=== PATIENT | female | born 1950 | race Caucasian/White ===

== ENCOUNTER 2021-09-15 20:00 | Emergency (ER) | payer MEDICARE, OTHER ==
[~2021-09-15] VITALS: Ht 144.8 cm; Wt 48.1 kg
[2021-09-15 20:02] VITALS: BP 196/90
[2021-09-15] MEDS ORDERED: cloNIDine HCL 0.1 MG TAB PO ONE (20:30)
== END 2021-09-15 21:48 | disposition home or self-care (01) ==
LOC: ER 20:03
DX: I16.0 Hypertensive urgency (principal); I10 Essential (primary) hypertension
CPT/HCPCS: 93005

== ENCOUNTER 2025-02-24 18:20 | Emergency (ER) | payer OTHER ==
[2025-02-24 18:49] LABS: Urine Bacteria None Seen /hpf (None Seen)
[2025-02-24 18:59] LABS: Urine Blood 3+ /uL (Negative); Urine Clarity Turbid (Clear); Urine Color Colorless (Yellow); Urine Protein, UAD TRACE (Negative); Urine Specific Gravity 1.006 (1.001-1.035); Urine Squamous Epithelial Cell None Seen /hpf (<5); Urine Urobilinogen Normal (Negative); Urine WBC 115 /HPF (0-5); Urine pH 6.5 (5.0-9.0)
[2025-02-24 19:07] LABS: Basophils # (auto) 0 10 ^3/uL (0-0.2); Basophils % (auto) 0.4 % (0.0-2.0); Eosinophils # (auto) 0.1 10 ^3/uL (0-0.8); Eosinophils % (auto) 1.5 % (0.0-7.0); Hematocrit 39.3 % (36.0-46.0); Hemoglobin 13.5 g/dL (12.2-16.2); Lymphocytes # (auto) 2.3 10 ^3/uL (0.4-5.4); Lymphocytes % (auto) 34.3 % (10.0-50.0); Mean Corpuscular Hemoglobin 31.5 pg (28.0-32.0); Mean Corpuscular Hgb Conc. 34.3 g/dL (32.0-36.0); Mean Corpuscular Volume 91.7 fL (80.0-100.0); Monocytes # (auto) 0.6 10 ^3/uL (0-1.3); Monocytes % (auto) 8.5 % (0.0-12.0); Neutrophils # (auto) 3.7 10 ^3/uL (1.6-8.6); Neutrophils % (auto) 55.3 % (37.0-80.0); Nucleated Red Blood Cells % 0.1 %; Platelet Count (auto) 291 10^3/uL (140-450); Red Blood Cells 4.29 10^6/uL (4.0-5.20); Red Cell Distribution Width 14.1 % (11.8-14.3); White Blood Cell 6.6 10^3/uL (4.4-10.8)
--- NOTE | 2025-02-24 19:08 | ED.PDOC ---
General HPI Comments 74 year old female presents to the ED with a chief complaint of hematuria onset today (02/24/25). Patient states she was experiencing dysuria with hematuria 10 days ago, was treated with 1 week of antibiotics, symptoms resolved. She woke up this morning, began experiencing dysuria with hematuria, noticed she was passing blood clots. PMHx HTN. Denies nausea, vomiting, diarrhea, fevers, chills, headache, dizziness, chest pain. No other symptoms or modifying factors present at this time. 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 History: No Pertinent EYEDOTTER History Family History Family History: Reviewed,noncontributory to illness, No family hx of Cancer, No family hx of DM, No family hx of Heart kaycee, No family hx of HTN, No family hx ofKidney kaycee, No family hx of Liver kaycee, No family hx of Lung kaycee, No family hx of Stroke Social History Smoker: Non-Smoker Alcohol: Denies ETOH Use Drugs: Denies Drug Use Lives In: Home Constitutional: denies: chills, diaphoresis, fatigue, fever, malaise, sweats, weakness, others EENTM: denies: blurred vision, double vision, ear bleeding, ear discharge, ear drainage, ear pain, ear ringing, eye pain, eye redness, hearing loss, mouth pain, mouth swelling, nasal discharge, nose bleeding, nose congestion, nose pain, photophobia, tearing, throat pain, throat swelling, voice changes, others Respiratory: denies: cough, hemoptysis, orthopnea, SOB at rest, shortness of breath, SOB with excertion, stridor, wheezing, others Cardiovascular: denies: chest pain, dizzy spells, diaphoresis, Dyspnea on exertion, edema, irregular heart beat, left arm pain, lightheadedness, palpitations, PND, syncope, others Gastrointestinal: denies: abdomen distended, abdominal pain, blood streaked bowels, constipated, diarrhea, dysphagia, difficulty swallowing, hematemesis, melena, nausea, poor appetite, poor fluid intake, rectal bleeding, rectal pain, vomiting, others Genitourinary: reports: dysuria, hematuria; denies: abnormal vagina bleeding, burning, dyspareunia, flank pain, frequency, incontinence, pain, , vagina discharge, urgency, others Neurological: denies: dizziness, fainting, headache, left sided numbness, left sided weakness, numbness, paresthesia, pre-existing deficit, right sided numbness, right sided weakness, seizure, speech problems, tingling, tremors, weakness, others Musculoskeletal: denies: back pain, gout, joint pain, joint swelling, muscle pain, muscle stiffness, neck pain, others Integumetry: denies: bruises, change in color, change in hair/nails, dryness, laceration, lesions, lumps, rash, wounds, others Allergic/Immunocompromised: denies: Difficulty Healing, Frequent Infections, Hives, Itching, others Hematologic/Lymphatic: denies: anemia, blood clots, easy bleeding, easy bruising, swollen glands, others Endocrine: denies: excessive hunger, excessive sweating, excessive thirst, excessive urination, flushing, intolerance to cold, intolerance to heat, unexplained weight gain, unexplained weight loss, others Psychiatric: denies: anxiety, bipolar disorder, depression, hopeless, panic di sorder, schizophrenia, sleepless, suicidal, others All Other Systems: Reviewed and Negative Physical Exam General Appearance: Normal HEENT: Normal ENT Inspection, Pharynx Normal, TMs Normal Neck: Full Range of Motion, Non-Tender, Normal, Normal Inspection Respiratory: Chest Non-Tender, Lungs Clear, No Accessory Muscle Use, No Respiratory Distress, Normal Breath Sounds Cardiovascular: No Edema, No JVD, No Murmur, No Gallop, Normal Peripheral Pulses, Regular Rate/Rhythm Breast Exam: Deferred Gastrointestinal: No Organomegaly, Non Tender, No Pulsatile Mass, Normal Bowel Sounds, Soft Genitalia: Deferred Pelvic: Deferred Rectal: Deferred Extremities: No calf tenderness, Normal capillary refill, Normal inspection, Normal range of motion, Non-tender, No pedal edema Musculoskeletal : Apperance: Normal Neurologic: Alert, campaign worker II-XII nml as Tested, No Motor Deficits, Normal Affect, Normal Mood, No Sensory Deficits Cerebellar Function: Normal Reflexes: Normal Skin: Dry, Normal Color, Warm Lymphatic: No Adenopathy Was a procedure done? Was a procedure done?: No Differential Diagnosis Kidney stone (Female): N/A Kidney stone (Male): N/A Penile/Scrotal: N/A Urinary Problem (Male): N/A Urinary Problem (Female): Pyelonephritis, UTI X-Ray, Labs, Meds, VS Vital Signs Date Time Temp Pulse Resp B/P (MAP) Pulse Ox O2 Delivery O2 Flow Rate FiO2 02/24/25 20:29 56 18 199/68 (111) 96 02/24/25 20:29 59 18 97 Room Air 02/24/25 18:34 98.0 63 16 181/91 (121) 95 98.0 Lab Test 02/24/25 19:50 02/24/25 18:52 02/24/25 18:36 Range/Units Troponin I High Sensitivity 6 5 </=34 ng/L White Blood Count 6.6 4.4-10.8 10^3/uL Red Blood Count 4.29 4.0-5.20 10^6/uL Hemoglobin 13.5 12.2-16.2 g/dL Hematocrit 39.3 36.0-46.0 % Mean Corpuscular Volume 91.7 80.0-100.0 fL Mean Corpuscular Hemoglobin 31.5 28.0-32.0 pg Mean Corpuscular Hemoglobin Concent 34.3 32.0-36.0 g/dL Red Cell Distribution Width 14.1 11.8-14.3 % Platelet Count 291 140-450 10^3/uL Mean Platelet Volume 7.0 6.9-10.8 fL Neutrophils (%) (Auto) 55.3 37.0-80.0 % Lymphocytes (%) (Auto) 34.3 10.0-50.0 % Monocytes (%) (Auto) 8.5 0.0-12.0 % Eosinophils (%) (Auto) 1.5 0.0-7.0 % Basophils (%) (Auto) 0.4 0.0-2.0 % Neutrophils # (Auto) 3.7 1.6-8.6 10 ^3/uL Lymphocytes # (Auto) 2.3 0.4-5.4 10 ^3/uL Monocytes # (Auto) 0.6 0-1.3 10 ^3/uL Eosinophils # (Auto) 0.1 0-0.8 10 ^3/uL Basophils # (Auto) 0 0-0.2 10 ^3/uL Nucleated Red Blood Cells 0.1 % Sodium Level 135 L 136-145 mmol/L Potassium Level 3.8 3.5-5.1 mmol/L Chloride Level 98 98-107 mmol/L Carbon Dioxide Level 27 20-31 mmol/L Anion Gap 10 5-15 Blood Urea Nitrogen 16 9-23 mg/dL Creatinine 0.68 0.550-1.02 mg/dL Glomerular Filtration Rate Calc 92 >90 mL/min BUN/Creatinine Ratio 23.5 H 10.0-20.0 Serum Glucose 103 74-106 mg/dL Calcium Level 9.9 8.7-10.4 mg/dL Urine Color Colorless Yellow Urine Clarity Turbid H Clear Urine pH 6.5 5.0-9.0 Urine Specific [place] 1.006 1.001-1.035 Urine Protein Trace H Negative Urine Ketones Negative Negative Urine Blood 3+ H Negative /uL Urine Nitrite Negative Negative Urine Bilirubin Negative Negative Urine Urobilinogen Normal Negative mg/dL Urine Leukocyte Esterase 1+ Negative /uL Urine RBC 852 0 - 4 /hpf Urine Microscopic WBC 115 H 0-5 /HPF Urine Squamous Epithelial Cells None seen <5 /hpf Urine Bacteria None seen None Seen /hpf Urine Glucose Normal Normal mg/dL Time of 1ST Reevaluation: 19:00 Reevaluation 1ST: Unchanged Patient Education/Counseling: Diagnosis, Treatment, Prognosis Family Education/Counseling: No Family Present SEPSIS Sepsis Screen Date sepsis recognized/suspect: Feb 24, 2025 Time Sepsis recognized/suspect: 1833 Recent Procedure: No On Antibiotic Therapy: No Respiratory Rate >20: No Heart Rate >90: No Temp<36 C (96.8 F) or >38.3 C: No SBP <90 or MAP <65 mmHG: No New Acute Mental Status Change: No Is the patient on CPAP, BIPAP,: No Vital Signs Date Time Temp Pulse Resp B/P (MAP) Pulse Ox O2 Delivery O2 Flow Rate FiO2 02/24/25 20:29 56 18 199/68 (111) 96 02/24/25 20:29 59 18 97 Room Air 02/24/25 18:34 98.0 63 16 181/91 (121) 95 98.0 Laboratory Tests Test 02/24/25 18:52 White Blood Count 6.6 10^3/uL (4.4-10.8) Departure 1 Departure Time of Disposition: 21:39 (Patient has a acute cystitis likely failed her 1st round of antibiotics as an outpatient. We will try patient on different antibiotic and have her follow up with the regular doctor) Impression: Primary Impression: Acute cystitis Qualified Codes: N30.01 - Acute cystitis with hematuria Disposition: HOME / SELF CARE / HOMELESS Condition: Stable Additional Instructions: You have a urinary tract infection. You were prescribed antibiotics. Please take as directed. You can take Tylenol Motrin as needed for pain. It is important that he follow up with the regular doctor within 1 week to ensure you are doing better. If your symptoms worsen or you have any other concerns then please return to the emergency room. e-Prescriptions Cefdinir (Cefdinir) 300 Mg Cap 1 CAP PO BID for 7 Days, #14 CAP Prov: LEIGH ANN ORDONEZ MD 02/24/25 Discharged With: Self Critical Care Note Critical Care Time?: No Stability Stability form required: No I personally scribed for LEIGH ANN ORDONEZ MD ([email or web address]) on 02/24/25 at 19:08. Electronically submitted by Tammie Evans ([email or web address]). I personally scribed for LEIGH ANN ORDONEZ MD ([email or web address]) on 02/24/25 at 19:29. Electronically submitted by Tammie Evans ([email or web address]). LEIGH ANN ORDONEZ MD Feb 24, 2025 19:08
[2025-02-24 19:16] LABS: Potassium 3.8 mmol/L (3.5-5.1)
[2025-02-24 19:17] LABS: Anion Gap 10 (5-15); Carbon Dioxide 27 mmol/L (20-31)
[2025-02-24 19:18] LABS: Calcium 9.9 mg/dL (8.7-10.4)
[2025-02-24 19:22] LABS: BUN/Creatinine Ratio 23.5 (10.0-20.0); Blood Urea Nitrogen 16 mg/dL (9-23); Glucose 103 mg/dL (74-106)
[2025-02-24 19:28] LABS: Chloride 98 mmol/L (98-107); Sodium 135 mmol/L (136-145)
[2025-02-24] MEDS: cefTRIAXone W LIDOCAINE 1 GM IM IM ONE (21:26)
[2025-02-24] MEDS: LIDOCAINE 1% HCL (LOCAL ANESTH.) INJ 20ML MDV IJ ONE (21:38)
[2025-02-24] MEDS: cefTRIAXone SOD 1,000 MG VL IM ONE (21:38)
[2025-02-24] MEDS ORDERED: CEFD300C2 PO (21:40)
[2025-02-24 21:42] VITALS: BP 140/77; PULSE 60; RESP 17; TEMP 98.5; O2SAT 97
== END 2025-02-24 23:07 | disposition home or self-care (01) ==
LOC: ER 18:22
DX: N30.00 Acute cystitis without hematuria (principal); I10 Essential (primary) hypertension; Z90.89 Acquired absence of other organs
CPT/HCPCS: 36415; 80048; 81001; 84484; 85025; 96372; 99283; J0696; J2003

== ENCOUNTER 2025-02-28 22:38 | Emergency (ER) | payer OTHER ==
[~2025-02-28] VITALS: Ht 149.9 cm; Wt 53.0 kg
[~2025-02-28 22:38] MED LIST: CEFD300C2 PO
[2025-02-28 23:19] LABS: Basophils # (auto) 0 10 ^3/uL (0-0.2); Basophils % (auto) 0.6 % (0.0-2.0); Eosinophils # (auto) 0.2 10 ^3/uL (0-0.8); Eosinophils % (auto) 3.3 % (0.0-7.0); Hematocrit 40.7 % (36.0-46.0); Hemoglobin 13.9 g/dL (12.2-16.2); Lymphocytes # (auto) 2.3 10 ^3/uL (0.4-5.4); Lymphocytes % (auto) 36.8 % (10.0-50.0); Mean Corpuscular Hemoglobin 31.4 pg (28.0-32.0); Mean Corpuscular Hgb Conc. 34.2 g/dL (32.0-36.0); Mean Corpuscular Volume 91.9 fL (80.0-100.0); Monocytes # (auto) 0.6 10 ^3/uL (0-1.3); Monocytes % (auto) 9.2 % (0.0-12.0); Neutrophils # (auto) 3.1 10 ^3/uL (1.6-8.6); Neutrophils % (auto) 50.1 % (37.0-80.0); Nucleated Red Blood Cells % 0.1 %; Platelet Count (auto) 287 10^3/uL (140-450); Red Blood Cells 4.43 10^6/uL (4.0-5.20); White Blood Cell 6.2 10^3/uL (4.4-10.8)
[2025-02-28 23:33] LABS: Potassium 3.7 mmol/L (3.5-5.1)
[2025-02-28 23:34] LABS: Anion Gap 10 (5-15); Carbon Dioxide 25 mmol/L (20-31)
[2025-02-28 23:35] LABS: Calcium 9.7 mg/dL (8.7-10.4)
--- NOTE | 2025-02-28 23:35 | ED.PDOC ---
History of Present Illness HPI Comments 74-year-old female brought in by EMS from [place] [facility] for evaluation of persistent hematuria. Patient has a history of hypertension and recurrent UTIs. Has been experiencing dysuria and gross hematuria for the past 6 days. Patient was seen here, diagnosed with a UTI and discharged on cefdinir. Today patient noted recurrence of dysuria, with gross hematuria and clots. Patient was seen at [place] [facility] where her blood pressure was noted to be in the 200s systolic, so patient was transferred by EMS for evaluation of elevated blood pressure. She denies any chest pain, headache, dizziness, focal weakness, flank pain, abdominal pain, nausea or vomiting. Upon arrival blood pressure was 186/84 mm Hg Chief Complaint: Urinary Time Seen by MD: 23:34 Primary Care Provider: DENVER Reviewed Notes: Thoracic Medicine Physician Notes Allergies: Coded Allergies: NO KNOWN ALLERGIES (Unverified , 09/15/21) Home Meds Active Scripts Ondansetron Odt 4MG Tab (ZOFRAN PO) 4 Mg Tb, 4 MG PO TID PRN, #30 TAB prn n/v ODT TAB-DISSOLVE IN MOUTH, THEN SWALLOW Prov:CADE WHALEN MD 03/01/25 Phenazopyridine HCl (Phenazopyridine Hydrochlo) 200 Mg Tab, 200 MG PO TID PRN, #9 TAB Prn painful urination Prov:CADE WHALEN MD 03/01/25 Ciprofloxacin Hcl (Cipro) 500 Mg Tab, 1 TAB PO BID for 7 Days, #14 TAB Prov:CADE WHALEN MD 03/01/25 Cefdinir (Cefdinir) 300 Mg Cap, 1 CAP PO BID for 7 Days, #14 CAP Prov:LEIGH ANN ORDONEZ MD 02/24/25 Information Source: Patient Mode of Arrival: EMS Severity: Moderate Timing: Days Duration: Since onset Past Medical History PAST MEDICAL HISTORY: HTN, UTI'S Surgical History: Hysterectomy, Tonsillectomy 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 History Family History Family History: Reviewed,noncontributory to illness, No family hx of Cancer, No family hx of DM, No family hx of Heart kaycee, No family hx of HTN, No family hx ofKidney kaycee, No family hx of Liver kaycee, No family hx of Lung kaycee, No family hx of Stroke Social History Smoker: Non-Smoker Alcohol: Denies ETOH Use Drugs: Denies Drug Use Lives In: Home Constitutional: denies: chills, diaphoresis, fatigue, fever, malaise, sweats, weakness, others EENTM: denies: blurred vision, double vision, ear bleeding, ear discharge, ear drainage, ear pain, ear ringing, eye pain, eye redness, hearing loss, mouth pain, mouth swelling, nasal discharge, nose bleeding, nose congestion, nose pain, photophobia, tearing, throat pain, throat swelling, voice changes, others Respiratory: denies: cough, hemoptysis, orthopnea, SOB at rest, shortness of breath, SOB with excertion, stridor, wheezing, others Cardiovascular: denies: chest pain, dizzy spells, diaphoresis, Dyspnea on exertion, edema, irregular heart beat, left arm pain, lightheadedness, palpitations, PND, syncope, others Gastrointestinal: reports: abdominal pain; denies: abdomen distended, blood streaked bowels, constipated, diarrhea, dysphagia, difficulty swallowing, hematemesis, melena, nausea, poor appetite, poor fluid intake, rectal bleeding, rectal pain, vomiting, others Genitourinary: reports: dysuria, hematuria; denies: abnormal vagina bleeding, burning, dyspareunia, flank pain, frequency, incontinence, pain, , vagina discharge, urgency, others Neurological: denies: dizziness, fainting, headache, left sided numbness, left sided weakness, numbness, paresthesia, pre-existing deficit, right sided numbness, right sided weakness, seizure, speech problems, tingling, tremors, weakness, others Musculoskeletal: denies: back pain, gout, joint pain, joint swelling, muscle pain, muscle stiffness, neck pain, others Integumetry: denies: bruises, change in color, change in hair/nails, dryness, laceration, lesions, lumps, rash, wounds, others Allergic/Immunocompromised: denies: Difficulty Healing, Frequent Infections, Hives, Itching, others Hematologic/Lymphatic: denies: anemia, blood clots, easy bleeding, easy bruising, swollen glands, others Endocrine: denies: excessive hunger, excessive sweating, excessive thirst, excessive urination, flushing, intolerance to cold, intolerance to heat, unexplained weight gain, unexplained weight loss, others Psychiatric: denies: anxiety, bipolar disorder, depression, hopeless, panic disorder, schizophrenia, sleepless, suicidal, others Physical Exam General Appearance: No Apparent Distress HEENT: Other (Pupils and face symmetric. Moist mucous membranes.) Neck: Full Range of Motion, Normal Inspection Respiratory: Lungs Clear, No Accessory Muscle Use, No Respiratory Distress, Normal Breath Sounds Cardiovascular: No Edema, No JVD, Regular Rate/Rhythm Breast Exam: Deferred Gastrointestinal: Non Tender, Soft Genitalia: Deferred Pelvic: Deferred Rectal: Deferred Extremities: Normal inspection, Normal range of motion, Non-tender, No pedal edema Neurologic: Alert (Oriented x4), Normal Affect, Normal Mood, Other (Ambulatory) Cerebellar Function: NOT DONE Reflexes: NOT DONE Skin: Dry, Normal Color, Warm Lymphatic: NOT DONE Was a procedure done? Was a procedure done?: No Differential Dx Considerations may include: Hypertensive urgency/emergency, UTI, among others X-Ray, Labs, Meds, VS Vital Signs Date Time Temp Pulse Resp B/P (MAP) Pulse Ox O2 Delivery O2 Flow Rate FiO2 03/01/25 01:52 97.9 53 16 134/62 (86) 97 97.9 02/28/25 22:45 98.6 60 18 186/84 (118) 99 98.6 02/28/25 22:43 55 Lab Test 03/01/25 00:00 02/28/25 23:50 02/28/25 23:05 Range/Units Urine Color Light-red Yellow Urine Clarity Turbid H Clear Urine pH 6.5 5.0-9.0 Urine Specific [place] 1.008 1.001-1.035 Urine Protein 1+ H Negative Urine Ketones Negative Negative Urine Blood 3+ H Negative /uL Urine Nitrite Negative Negative Urine Bilirubin Negative Negative Urine Urobilinogen Normal Negative mg/dL Urine Leukocyte Esterase 1+ Negative /uL Urine RBC 2504 0 - 4 /hpf Urine Microscopic WBC 13 H 0-5 /HPF Urine Squamous Epithelial Cells None seen <5 /hpf Urine Bacteria None seen None Seen /hpf Urine Glucose Normal Normal mg/dL Troponin I High Sensitivity 6 5 </=34 ng/L White Blood Count 6.2 4.4-10.8 10^3/uL Red Blood Count 4.43 4.0-5.20 10^6/uL Hemoglobin 13.9 12.2-16.2 g/dL Hematocrit 40.7 36.0-46.0 % Mean Corpuscular Volume 91.9 80.0-100.0 fL Mean Corpuscular Hemoglobin 31.4 28.0-32.0 pg Mean Corpuscular Hemoglobin Concent 34.2 32.0-36.0 g/dL Red Cell Distribution Width 14.0 11.8-14.3 % Platelet Count 287 140-450 10^3/uL Mean Platelet Volume 6.9 6.9-10.8 fL Neutrophils (%) (Auto) 50.1 37.0-80.0 % Lymphocytes (%) (Auto) 36.8 10.0-50.0 % Monocytes (%) (Auto) 9.2 0.0-12.0 % Eosinophils (%) (Auto) 3.3 0.0-7.0 % Basophils (%) (Auto) 0.6 0.0-2.0 % Neutrophils # (Auto) 3.1 1.6-8.6 10 ^3/uL Lymphocytes # (Auto) 2.3 0.4-5.4 10 ^3/uL Monocytes # (Auto) 0.6 0-1.3 10 ^3/uL Eosinophils # (Auto) 0.2 0-0.8 10 ^3/uL Basophils # (Auto) 0 0-0.2 10 ^3/uL Nucleated Red Blood Cells 0.1 % Sodium Level 132 L 136-145 mmol/L Potassium Level 3.7 3.5-5.1 mmol/L Chloride Level 97 L 98-107 mmol/L Carbon Dioxide Level 25 20-31 mmol/L Anion Gap 10 5-15 Blood Urea Nitrogen 12 9-23 mg/dL Creatinine 0.72 0.550-1.02 mg/dL Glomerular Filtration Rate Calc 88 >90 mL/min BUN/Creatinine Ratio 16.7 10.0-20.0 Serum Glucose 111 H 74-106 mg/dL Calcium Level 9.7 8.7-10.4 mg/dL B-Type Natriuretic Peptide 158.73 0-100 pg/mL Current Medications Medications (Trade) Dose Ordered Sig/Nitesh Route Start Time Stop Time Status Last Admin Levofloxacin/ Dextrose 100 ml @ 100 mls/hr ONCE ONCE IV 02/28/25 23:30 03/01/25 00:29 DC 03/01/25 02:18 Phenazopyridine HCl (Pyridium Tablet) 200 mg ONCE ONCE PO 02/28/25 23:30 02/28/25 23:31 DC 03/01/25 02:18 X-Ray, Labs, Meds, VS Comment 74-year-old female history of hypertension and UTI brought in by EMS from [facility] with elevated blood pressure and complaints of persistent dysuria and hematuria despite taking cefdinir Vitals remarkable for heart rate 55, BP 186/84 Exam unremarkable Rhythm strip independently interpreted by me: Sinus bradycardia, rate 55, no ectopy. CBC unremarkable, basic metabolic panel remarkable for sodium 132, chloride 97, BNP 158.73, 2 troponins negative, UA abnormal consistent with UTI Patient treated with the following in the ED: Levaquin 500 mg IV, Pyridium 200 mg p.o. On re-evaluation, patient's blood pressure was 134/62 and other vitals were stable. Patient was asymptomatic. Hospitalization was considered, however patient had rapid improvement of symptoms with treatment in the ED, and I no longer feel hospitalization is necessary. Patient now appears stable for discharge with close outpatient follow-up with her primary physician. I will prescribe Cipro and Pyridium. Time of 1ST Reevaluation: 23:29 Reevaluation 1ST: Unchanged Patient Education/Counseling: Diagnosis, Treatment Family Education/Counseling: No Family Present SEPSIS Sepsis Screen Date sepsis recognized/suspect: Feb 28, 2025 Time Sepsis recognized/suspect: 2244 Recent Procedure: No On Antibiotic Therapy: No Respiratory Rate >20: No Heart Rate >90: No Temp<36 C (96.8 F) or >38.3 C: No SBP <90 or MAP <65 mmHG: No New Acute Mental Status Change: No Is the patient on CPAP, BIPAP,: No Physician Orders Electrocardigram (02/28/25 22:48) Chest Portable (02/28/25 22:57) Urine Bacterial Culture (02/28/25 23:00) Straight Cath Patient (03/01/25 00:50) Vital Signs Date Time Temp Pulse Resp B/P (MAP) Pulse Ox O2 Delivery O2 Flow Rate FiO2 03/01/25 01:52 97.9 53 16 134/62 (86) 97 97.9 02/28/25 22:45 98.6 60 18 186/84 (118) 99 98.6 02/28/25 22:43 55 Laboratory Tests Test 02/28/25 23:05 White Blood Count 6.2 10^3/uL (4.4-10.8) Medications Medications Dose Ordered Sig/Nitesh Route Start Time Stop Time Status Last Admin Dose Admin Levofloxacin/ Dextrose 100 ml @ 100 mls/hr ONCE ONCE IV 02/28/25 23:30 03/01/25 00:29 DC 03/01/25 02:18 Phenazopyridine HCl 200 mg ONCE ONCE PO 02/28/25 23:30 02/28/25 23:31 DC 03/01/25 02:18 Departure 1 Departure Time of Disposition: 02:15 Impression: Primary Impression: Hypertensive urgency Additional Impression: UTI (urinary tract infection) Qualified Codes: N39.0 - Urinary tract infection, site not specified; R31.9 - Hematuria, unspecified Disposition: 01 HOME / SELF CARE / HOMELESS Condition: Stable Additional Instructions: Your blood tests showed a slightly low sodium and chloride, but were otherwise unremarkable. Your blood pressure has improved. I have prescribed an additional antibiotic for your urinary tract infection. Continue cefdinir until finished. Return to ER for persistent or worsening symptoms. e-Prescriptions Ondansetron Odt 4MG Tab (ZOFRAN PO) 4 Mg Tb 4 MG PO TID PRN, #30 TAB prn n/v ODT TAB-DISSOLVE IN MOUTH, THEN SWALLOW Prov: CADE WHALEN MD 03/01/25 Phenazopyridine HCl (Phenazopyridine Hydrochlo) 200 Mg Tab 200 MG PO TID PRN, #9 TAB Prn painful urination Prov: CADE WHALEN MD 03/01/25 Ciprofloxacin Hcl (Cipro) 500 Mg Tab 1 TAB PO BID for 7 Days, #14 TAB Prov: CADE WHALEN MD 03/01/25 Discharged With: Relative Critical Care Note Critical Care Time?: Yes (35 min-critical care time only) Critical care comment: Hypertensive urgency Stability Stability form required: No Heart Score Heart Score: Heart Score Response (Comments) Value History N/A 0 EKG N/A 0 Age N/A 0 Risk Factors N/A 0 Troponin N/A 0 Total 0 I personally scribed for CADE WHALEN MD [facility] on 02/28/25 at 23:34. Electronically submitted by Roberto SalesRCARRILLO). CADE WHALEN MD Feb 28, 2025 23:34
[2025-02-28 23:40] LABS: BUN/Creatinine Ratio 16.7 (10.0-20.0); Blood Urea Nitrogen 12 mg/dL (9-23)
[2025-02-28 23:41] LABS: Chloride 97 mmol/L (98-107); Glucose 111 mg/dL (74-106); Sodium 132 mmol/L (136-145)
--- NOTE | 2025-02-28 23:58 | DVH ---
EXAMINATIONS: AP portable chest radiograph CLINICAL HISTORY: al bp COMPARISON: None FINDINGS: No dominant consolidations. The costophrenic angles appear clear. No sizable pleural effusion or pne umothorax identified. Aortic calcifications. The cardiomediastinal silhouette otherwise appears wit hin normal limits given technique. IMPRESSION: No acute cardiopulmonary findings as visualized.
[2025-03-01 01:52] VITALS: BP 134/62; PULSE 53; RESP 16; TEMP 97.9; O2SAT 97
[2025-03-01] MEDS ORDERED: PHEN-922 PO (02:17)
[2025-03-01] MEDS ORDERED: CIPR-173 PO (02:17)
[2025-03-01] MEDS: PHENAZOPYRIDINE HCL 100 MG TAB PO ONE (02:18)
[2025-03-01] MEDS: levoFLOXacin 500MG 100 ML IV ONE (02:18)
[2025-03-01 02:45] LABS: Urine Bacteria None Seen /hpf (None Seen)
[2025-03-01] MEDS ORDERED: ZOFR4T PO (02:48)
[2025-03-01] MEDS: ONDANSETRON HCL 4 MG/2 ML VIAL IV ONE ×2 (02:51)
[2025-03-01 02:58] LABS: Urine Blood 3+ /uL (Negative); Urine Clarity Turbid (Clear); Urine Color Light-Red (Yellow); Urine Protein, UAD 1+ (Negative); Urine Specific Gravity 1.008 (1.001-1.035); Urine Squamous Epithelial Cell None Seen /hpf (<5); Urine Urobilinogen Normal (Negative); Urine WBC 13 /HPF (0-5); Urine pH 6.5 (5.0-9.0)
--- NOTE | 2025-03-01 07:03 | ECG ---
[facility] Test Date: 2025-02-28 Test Time: 22:42:15 Pat Name: BUCKY ROMAN Department: ED Room: Gender: F Carburizer: IC : 1950 Requested By: DARREN CHU Order Number: [id number] Reading MD: Alfonzo Levine Measurements Intervals [place] Rate: 55 P: 28 MN: 180 QRS: 33 QRSD: 78 T: 87 QT: 423 QTc: 405 Interpretive Statements Sinus rhythm Nonspecific repol abnormality, lateral leads Electronically Signed On 03-06-2025 9:36:54 PDT by Alfonzo Levine Please click the below link to view image of tracing.
== END 2025-03-01 03:08 | disposition home or self-care (01) ==
LOC: EDBD 22:38 → ER 22:38
DX: I16.0 Hypertensive urgency (principal); N39.0 Urinary tract infection, site not specified; I10 Essential (primary) hypertension; Z90.710 Acquired absence of both cervix and uterus; Z87.440 Personal history of urinary (tract) infections; Z79.899 Other long term (current) drug therapy
CPT/HCPCS: 36415; 71045; 80048; 81001; 83880; 84484; 85025; 87086; 93005; 96365; 99285; J1956; J2405

== ENCOUNTER 2025-03-06 05:31 | Inpatient (IN) | payer OTHER ==
[~2025-03-06] VITALS: Ht 162.6 cm; Wt 52.5 kg
[~2025-03-06 05:31] MED LIST changes: +CIPR-173 PO; +PHEN-922 PO; +ZOFR4T PO
--- NOTE | 2025-03-06 06:07 | ECG ---
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
[2025-03-06 06:18] VITALS: PULSE 48; RESP 13; O2SAT 97
--- NOTE | 2025-03-06 06:37 | ED.PDOC ---
HPI Comments 74 year old female with a Hx of HTH was BIBA for the c/c of HTN. Per EMS pt had a BP on Scene of 191/100 but has since dropped to 100/41 in the ED. Pt currently denies any DEL ROSARIO, CP, SOB, Dizziness, Ect, but does report recently being prescribed Lisinopril. No other associated symptoms, modifiers, recent injuries or sick contacts present at this time. Chief Complaint: High Blood Pressure Time Seen by MD: 06:33 Primary Care Provider: JOAQUIN Reviewed Notes: Nurses Notes, Senior Physician Notes, Medications, Allergies Allergies: Coded Allergies: NO KNOWN ALLERGIES (Unverified , 09/15/21) Home Meds Active Scripts Ondansetron Odt 4MG Tab (ZOFRAN PO) 4 Mg Tb, 4 MG PO TID PRN, #30 TAB prn n/v ODT TAB-DISSOLVE IN MOUTH, THEN SWALLOW Prov:CADE WHALEN MD 03/01/25 Phenazopyridine HCl (Phenazopyridine Hydrochlo) 200 Mg Tab, 200 MG PO TID PRN, #9 TAB Prn painful urination Prov:CADE WHALEN MD 03/01/25 Ciprofloxacin Hcl (Cipro) 500 Mg Tab, 1 TAB PO BID for 7 Days, #14 TAB Prov:CADE WHALEN MD 03/01/25 Cefdinir (Cefdinir) 300 Mg Cap, 1 CAP PO BID for 7 Days, #14 CAP Prov:LEIGH ANN ORDONEZ MD 02/24/25 Information Source: Patient Mode of Arrival: EMS Severity: Moderate Timing: Hours Duration: Since onset, Hours Prehospital treatment: 12 Lead EKG Location: Chest (L) Radiation: No Radiation Quality: Other Onset: At Rest Cardiac Risk Factors: HTN PE Risk Factors: None History of: None Modifying Factors: Exertion Associated Signs and Symptoms: None Past Medical History PAST MEDICAL HISTORY: HTN, UTI'S Surgical History: Hysterectomy, Tonsillectomy EXECUTIVE OFFICER History: No Pertinent EXECUTIVE OFFICER History Family History Family History: Reviewed,noncontributory to illness, No family hx of Cancer, No family hx of DM, No family hx of Heart kaycee, No family hx of HTN, No family hx ofKidney kaycee, No family hx of Liver kaycee, No family hx of Lung kaycee, No family hx of Stroke Social History Smoker: Non-Smoker Alcohol: Denies ETOH Use Drugs: Denies Drug Use Lives In: Home Constitutional: denies: chills, diaphoresis, fatigue, fever, malaise, sweats, weakness, others EENTM: denies: blurred vision, double vision, ear bleeding, ear discharge, ear drainage, ear pain, ear ringing, eye pain, eye redness, hearing loss, mouth pain, mouth swelling, nasal discharge, nose bleeding, nose congestion, nose pain, photophobia, tearing, throat pain, throat swelling, voice changes, others Respiratory: denies: cough, hemoptysis, orthopnea, SOB at rest, shortness of breath, SOB with excertion, stridor, wheezing, others Cardiovascular: reports: others (HTN); denies: chest pain, dizzy spells, diaphoresis, Dyspnea on exertion, edema, irregular heart beat, left arm pain, lightheadedness, palpitations, PND, syncope Gastrointestinal: denies: abdomen distended, abdominal pain, blood streaked bowels, constipated, diarrhea, dysphagia, difficulty swallowing, hematemesis, melena, nausea, poor appetite, poor fluid intake, rectal bleeding, rectal pain, vomiting, others Genitourinary: denies: abnormal vagina bleeding, burning, dyspareunia, dysuria, flank pain, frequency, hematuria, incontinence, pain, , vagina discharge, urgency, others Neurological: denies: dizziness, fainting, headache, left sided numbness, left sided weakness, numbness, paresthesia, pre-existing deficit, right sided numbness, right sided weakness, seizure, speech problems, tingling, tremors, weakness, others Musculoskeletal: denies: back pain, gout, joint pain, joint swelling, muscle pain, muscle stiffness, neck pain, others Integumetry: denies: bruises, change in color, change in hair/nails, dryness, laceration, lesions, lumps, rash, wounds, others Allergic/Immunocompromised: denies: Difficulty Healing, Frequent Infections, Hives, Itching, others Hematologic/Lymphatic: denies: anemia, blood clots, easy bleeding, easy bruising, swollen glands, others Endocrine: denies: excessive hunger, excessive sweating, excessive thirst, excessive urination, flushing, intolerance to cold, intolerance to heat, unexplained weight gain, unexplained weight loss, others Psychiatric: denies: anxiety, bipolar disorder, depression, hopeless, panic disorder, schizophrenia, sleepless, suicidal, others All Other Systems: Reviewed and Negative Physical Exam General Appearance: Moderate Distress, Normal HEENT: Normal ENT Inspection, Pharynx Normal, TMs Normal Neck: Full Range of Motion, Non-Tender, Normal, Normal Inspection Respiratory: Chest Non-Tender, Lungs Clear, No Accessory Muscle Use, No Respiratory Distress, Normal Breath Sounds Cardiovascular: Bradycardia, No Edema, No JVD, No Murmur, No Gallop, Normal Peripheral Pulses Breast Exam: Deferred Gastrointestinal: No Organomegaly, Non Tender, No Pulsatile Mass, Normal Bowel Sounds, Soft Genitalia: Deferred Pelvic: Deferred Rectal: Deferred Extremities: No calf tenderness, Normal capillary refill, Normal inspection, Normal range of motion, Non-tender, No pedal edema Musculoskeletal : Apperance: Normal Neurologic: Alert, services account manager II-XII nml as Tested, No Motor Deficits, Normal Affect, Normal Mood, No Sensory Deficits Cerebellar Function: NOT DONE Reflexes: NOT DONE Skin: Dry, Normal Color, Warm Peripheral Pulses: 3+ Radial (R), 3+ Radial (L) Lymphatic: No Adenopathy EKG EKG : Pulse Rate (adult): 52 Cardiac Rhythm: SB Was a procedure done? Was a procedure done?: No CP Differential Dx Differential Diagnosis: A-fib, A-Flutter, Angina, Anxiety / Panic Attack, Atri al Dysrhythmia, Electrolyte Disorder, Hyperthyroidism, Hyperventilation, Hypoxia, Pulmonary Embolus, Ventricular Dysrhythmia Differential Diagnosis: CHF, HTN Essential, HTN Encephalopathy X-Ray, Labs, Meds, VS Vital Signs Date Time Temp Pulse Resp B/P (MAP) Pulse Ox O2 Delivery O2 Flow Rate FiO2 03/06/25 08:02 98.4 55 13 116/56 (76) 97 98.4 03/06/25 08:01 54 13 97 Room Air* 0 03/06/25 07:56 52 03/06/25 06:18 48 13 97 Room Air* 0 03/06/25 06:15 98.4 48 13 100/41 (60) 97 98.4 03/06/25 06:00 49 03/06/25 05:31 98.5 56 16 157/73 (101) 97 98.5 Lab Test 03/06/25 06:39 Range/Units White Blood Count 4.0 #L 4.4-10.8 10^3/uL Red Blood Count 4.11 4.0-5.20 10^6/uL Hemoglobin 13.0 12.2-16.2 g/dL Hematocrit 37.9 36.0-46.0 % Mean Corpuscular Volume 92.3 80.0-100.0 fL Mean Corpuscular Hemoglobin 31.6 28.0-32.0 pg Mean Corpuscular Hemoglobin Concent 34.2 32.0-36.0 g/dL Red Cell Distribution Width 14.1 11.8-14.3 % Platelet Count 270 140-450 10^3/uL Mean Platelet Volume 7.0 6.9-10.8 fL Neutrophils (%) (Auto) 60.9 37.0-80.0 % Lymphocytes (%) (Auto) 27.9 10.0-50.0 % Monocytes (%) (Auto) 8.5 0.0-12.0 % Eosinophils (%) (Auto) 2.2 0.0-7.0 % Basophils (%) (Auto) 0.5 0.0-2.0 % Neutrophils # (Auto) 2.4 1.6-8.6 10 ^3/uL Lymphocytes # (Auto) 1.1 0.4-5.4 10 ^3/uL Monocytes # (Auto) 0.3 0-1.3 10 ^3/uL Eosinophils # (Auto) 0.1 0-0.8 10 ^3/uL Basophils # (Auto) 0 0-0.2 10 ^3/uL Nucleated Red Blood Cells 0.0 % Sodium Level 132 L 136-145 mmol/L Potassium Level 3.5 3.5-5.1 mmol/L Chloride Level 99 98-107 mmol/L Carbon Dioxide Level 24 20-31 mmol/L Anion Gap 9 5-15 Blood Urea Nitrogen 11 9-23 mg/dL Creatinine 0.63 0.550-1.02 mg/dL Glomerular Filtration Rate Calc 94 >90 mL/min BUN/Creatinine Ratio 17.5 10.0-20.0 Serum Glucose 122 H 74-106 mg/dL Calcium Level 9.7 8.7-10.4 mg/dL Troponin I High Sensitivity 4 </=34 ng/L Current Medications Medications (Trade) Dose Ordered Sig/Nitesh Route Start Time Stop Time Status Last Admin Sodium Chloride 1,000 ml @ 1,000 mls/hr Q1H ONCE IV 03/06/25 06:45 03/06/25 07:44 DC 03/06/25 06:43 Patient alert. Answering questions. Bradycardic. Establish intravenous access. Was given fluids. Blood pressure on the low side. Cardiac marker within normal limits. Hemoglobin within normal limits. Cardiology consultation for pacemaker evaluation. Explained to the patient. Unstable for transfer. [facility] approved inpatient admission [id number]. Time of 1ST Reevaluation: 07:04 Reevaluation 1ST: Unchanged Patient Education/Counseling: Diagnosis, Treatment, Need For Follow Up Family Education/Counseling: No Family Present SEPSIS Sepsis Screen Date sepsis recognized/suspect: Mar 06, 2025 Time Sepsis recognized/suspect: 530 Recent Procedure: No On Antibiotic Therapy: No Respiratory Rate >20: No Heart Rate >90: No Temp<36 C (96.8 F) or >38.3 C: No SBP <90 or MAP <65 mmHG: No New Acute Mental Status Change: No Is the patient on CPAP, BIPAP,: No Physician Orders Urinalysis (03/06/25 06:31) Vital Signs Date Time Temp Pulse Resp B/P (MAP) Pulse Ox O2 Delivery O2 Flow Rate FiO2 03/06/25 08:02 98.4 55 13 116/56 (76) 97 98.4 03/06/25 08:01 54 13 97 Room Air* 0 21 03/06/25 07:56 52 03/06/25 06:18 48 13 97 Room Air* 0 21 03/06/25 06:15 98.4 48 13 100/41 (60) 97 98.4 03/06/25 06:00 49 03/06/25 05:31 98.5 56 16 157/73 (101) 97 98.5 Laboratory Tests Test 03/06/25 06:39 White Blood Count 4.0 10^3/uL (4.4-10.8) #L Medications Medications Dose Ordered Sig/Nitesh Route Start Time Stop Time Status Last Admin Dose Admin Sodium Chloride 1,000 ml @ 1,000 mls/hr Q1H ONCE IV 03/06/25 06:45 03/06/25 07:44 DC 03/06/25 06:43 Departure 1 Departure Time of Disposition: 07:56 Impression: Primary Impression: Symptomatic bradycardia Disposition: 09 ADMITTED INPATIENT Admit to: Med Surg Condition: Guarded Critical Care Note Critical Care Time?: Yes (90 min-critical care time only) Critical care comment: Blood pressure on the low side continue to monitor Stability Stability form required: No Heart Score Heart Score: Heart Score Response (Comments) Value History Slightly Suspicious 0 EKG Normal 0 Age >65 2 Risk Factors 1 or 2 risk factors 1 Troponin Normal limit 0 Total 3 I personally scribed for SELAM BELL MD ([email or web address]) on 03/06/25 at 06:37. Electronically submitted by Steve Ricardo ([email or web address]). SELAM BELL MD Mar 06, 2025 06:37
[2025-03-06] MEDS: SODIUM CHLORIDE 0.9% 1,000 ML IV ONE (06:43)
[2025-03-06 06:58] LABS: Hematocrit 37.9 % (36.0-46.0); Hemoglobin 13.0 g/dL (12.2-16.2); Mean Corpuscular Hemoglobin 31.6 pg (28.0-32.0); Mean Corpuscular Volume 92.3 fL (80.0-100.0); Nucleated Red Blood Cells % 0.0 %
[2025-03-06 07:07] LABS: Chloride 99 mmol/L (98-107); Potassium 3.5 mmol/L (3.5-5.1)
[2025-03-06 07:08] LABS: Anion Gap 9 (5-15); Calcium 9.7 mg/dL (8.7-10.4); Carbon Dioxide 24 mmol/L (20-31)
[2025-03-06 07:10] LABS: Sodium 132 mmol/L (136-145)
[2025-03-06 07:13] LABS: BUN/Creatinine Ratio 17.5 (10.0-20.0); Blood Urea Nitrogen 11 mg/dL (9-23)
[2025-03-06 07:14] LABS: Glucose 122 mg/dL (74-106)
[2025-03-06 08:01] VITALS: PULSE 54; RESP 13; O2SAT 97
[2025-03-06] MEDS ORDERED: BISO5TAB44 PO (10:08)
[2025-03-06] MEDS ORDERED: LISI10TA34 PO (10:08)
[2025-03-06] MEDS ORDERED: HYDROcodone-ACET 5/325MG TAB PO PRN (10:15)
[2025-03-06] MEDS ORDERED: ONDANSETRON HCL 4 MG/2 ML VIAL IV PRN (10:15)
[2025-03-06] MEDS ORDERED: hydrALAZINE HCL 20 MG/ML VL IV PRN (10:15)
[2025-03-06] MEDS ORDERED: DOCUSATE SOD 100 MG CAP PO PRN (10:15)
[2025-03-06] MEDS ORDERED: MORPHINE SULFATE INJ 2 MG/ml SYRG IV PRN (10:15)
[2025-03-06] MEDS ORDERED: NITROGLYCERIN 0.4 MG SL TAB SL PRN (10:15)
[2025-03-06] MEDS ORDERED: ACETAMINOPHEN 325 MG TAB PO PRN (10:15)
--- NOTE | 2025-03-06 10:24 | DVHHP2 ---
History of Present Illness Reason for Visit: Hypertension History of Present Illness Finn Polanco is a 74-year-old female with past medical history of hypertension who came to the hospital for uncontrolled hypertension. Patient has been taking antihypertensives for a few years, she was weaned off her statin due to controlling her cholesterol with diet and exercise. However her blood pressure has been continuing to increase. Recently she has increased her Bisoprolol from daily to BID, then last week they added lisinopril to her regimen. She continues to have uncontrolled blood pressure. She came to the hospital last night because despite taking all her medications and taking an extra bisoprolol her blood pressure remained elevated. Patient states she took her blood pressure medication last night about 1800. Went to sleep about 2000. Woke up about 2100 and had difficulty going back to sleep. She states she usually has difficulty sleeping when her blood pressure is elevated. She took her blood pressure and it was in the 180's, she took another bisoprolol. Her blood pressure did not i mprove, so she called her granddaughter to come and bring her to the hospital. While in the ER she was bradycardic, this is most likely due to the extra dose of bisoprolol. She states her heart rate is usually in the 60's. At time of my assessment her hear rate is in the high 50's - low 60's, and she is asymptomatic. Cardiovascular: HTN Past Surgical History: Hysterectomy, Tonsillectomy Smoke: No ALCOHOL: none Drugs: None Lives: with Family Domestic Violence: Neg Review of Systems Constitutional: No: Fever, Chills, Sweats, Weakness, Malaise, Other Eyes: No: Pain, Vision change, Conjunctivae inflammation, Eyelid inflammation, Other, Redness ENT: No: Ear pain, Ear discharge, Nose pain, Nose discharge, Nose congestion, Mouth pain, Mouth swelling, Throat pain, Throat swelling, Other Respiratory: No: Cough, Dry, Shortness of breath, SOB with excertion, Wheezing, Hemoptysis, Pleuritic Pain, Sputum, Wheezing, Other Cardiovascular: Other (Hypertension); No: Chest Pain, Palpitations, Orthopnea, Paroxysmal Noc. Dyspnea, Edema, Lt Headedness Gastrointestinal: No: Nausea, Vomiting, Abdominal Pain, Diarrhea, Constipation, Melena, Hematochezia, Other Genitourinary: No Dysuria, No Frequency, No Incontinence, No Hematuria, No Retention, No Other Musculoskeletal: No: other, neck pain, shoulder pain, arm pain, back pain, hand pain, leg pain, foot pain Skin: No: Rash, Lesions, Jaundice, Bruising, Other Neurological: No: Weakness, Numbness, Incoordination, Change in speech, Confusion, Seizures, Other Allergies: Coded Allergies: NO KNOWN ALLERGIES (Unverified , 09/15/21) Medications Current Medications Medications Dose Ordered Sig/Nitesh Route Start Time Stop Time Status Last Admin Dose Admin Sodium Chloride 10 ml Q8HR IV 03/06/25 14:00 UNV Acetaminophen/ Hydrocodone Bitart 1 tab Q4HP PRN PO 03/06/25 10:15 UNV Ondansetron HCl 4 mg Q4HP PRN IV 03/06/25 10:15 UNV Docusate Sodium 100 mg BIDPRN PRN PO 03/06/25 10:15 UNV Acetaminophen 650 mg Q6HP PRN PO 03/06/25 10:15 UNV Nitroglycerin 0.4 mg Q5MINP PRN SL 03/06/25 10:15 UNV Morphine Sulfate 2 mg Q30M PRN IV 03/06/25 10:15 UNV Patient Own Medication 5 mg BID PO 03/06/25 22:00 UNV Patient Own Medication 1 tab BID PO 03/06/25 22:00 UNV Hydralazine HCl 10 mg Q6HP PRN IV 03/06/25 10:15 UNV Exam Vital Signs Vital Signs Date Time Temp Pulse Resp B/P (MAP) Pulse Ox O2 Delivery O2 Flow Rate FiO2 03/06/25 10:00 55 14 137/64 (88) 96 03/06/25 08:02 98.4 98.4 03/06/25 08:01 Room Air* 0 21 General Appearance: Alert, Oriented X3, Cooperative, mild distress HEENT: Atraumatic, PERRLA Respiratory: Clear to auscultation Cardiovascular: Normal S1, Normal S2, Other (SB-SR) Abdominal: Normal bowel sounds, Soft, No tenderness Extremities: No clubbing, No cyanosis, No edema, Normal pulses, No tenderness/swelling Skin: No rashes, No breakdown, No significant lesion Neuro: Normal gait, Normal speech, Strength at 5/5 X4 ext Psych/Mental Status: Mental status NL, Mood NL Labs/Xrays Labs Test 03/06/25 06:39 Range/Units White Blood Count 4.0 #L 4.4-10.8 10^3/uL Red Blood Count 4.11 4.0-5.20 10^6/uL Hemoglobin 13.0 12.2-16.2 g/dL Hematocrit 37.9 36.0-46.0 % Mean Corpuscular Volume 92.3 80.0-100.0 fL Mean Corpuscular Hemoglobin 31.6 28.0-32.0 pg Mean Corpuscular Hemoglobin Concent 34.2 32.0-36.0 g/dL Red Cell Distribution Width 14.1 11.8-14.3 % Platelet Count 270 140-450 10^3/uL Mean Platelet Volume 7.0 6.9-10.8 fL Neutrophils (%) (Auto) 60.9 37.0-80.0 % Lymphocytes (%) (Auto) 27.9 10.0-50.0 % Monocytes (%) (Auto) 8.5 0.0-12.0 % Eosinophils (%) (Auto) 2.2 0.0-7.0 % Basophils (%) (Auto) 0.5 0.0-2.0 % Neutrophils # (Auto) 2.4 1.6-8.6 10 ^3/uL Lymphocytes # (Auto) 1.1 0.4-5.4 10 ^3/uL Monocytes # (Auto) 0.3 0-1.3 10 ^3/uL Eosinophils # (Auto) 0.1 0-0.8 10 ^3/uL Basophils # (Auto) 0 0-0.2 10 ^3/uL Nucleated Red Blood Cells 0.0 % Sodium Level 132 L 136-145 mmol/L Potassium Level 3.5 3.5-5.1 mmol/L Chloride Level 99 98-107 mmol/L Carbon Dioxide Level 24 20-31 mmol/L Anion Gap 9 5-15 Blood Urea Nitrogen 11 9-23 mg/dL Creatinine 0.63 0.550-1.02 mg/dL Glomerular Filtration Rate Calc 94 >90 mL/min BUN/Creatinine Ratio 17.5 10.0-20.0 Serum Glucose 122 H 74-106 mg/dL Calcium Level 9.7 8.7-10.4 mg/dL Troponin I High Sensitivity 4 </=34 ng/L Assessment/Plan Assessment/Plan Assessment: Uncontrolled hypertension, Bradycardia, Plan: Admit to Tele, Consider cardiology consult if symptoms persist, ECHO, Chest X-ray, Antihypertensives, PRN antihypertensives, Consider lowering beta tyra dose, Home medications reconciled, Plan discussed with: Patient My Orders Orders - GERBER GARCIA Procedure Category Date Status Time Admit ADMIT 03/06/25 Transmitted 10:04 Code Status CODE 03/06/25 Transmitted 10:04 2 Gm Sodium Diet DIET 03/06/25 Transmitted Lunch Sodium Chloride Lock PHA 03/06/25 Logged (Saline Lock Ns) 14:00 Hydrocodone-Acet PHA 03/06/25 Logged 5/325mg Tab ([place] 10:15 Ondansetron Hcl PHA 03/06/25 Logged (Zofran) 10:15 Docusate Sodium PHA 03/06/25 Logged Capsule (Colace 10:15 Complete Blood Count LAB 03/07/25 Verified 04:00 Comprehensive LAB 03/07/25 Verified Metabolic Panel 04:00 Echo 2d Mode Cardiac US 03/06/25 Logged DOP 10:04 Condition: Serious [facility] 03/06/25 In Process 10:04 Acetaminophen Tablet [facility] 03/06/25 Logged (Tylenol Tablet) 10:15 Nitroglycerin PHA 03/06/25 Logged Sublingual (Ntrostat 10:15 Morphine Sulfate PHA 03/06/25 Logged Injection 10:15 Stat Ekg For Chest [facility] 03/06/25 In Process Pain 10:04 Notify Md Of Changes [facility] 03/06/25 In Process From Base 10:04 Granite Fabricator For [facility] 03/06/25 In Process 24 Hours 10:04 Emergency Dysrhythmia [facility] 03/06/25 In Process Protocol 10:04 Rhythm Strips Once [facility] 03/06/25 In Process Every Shift 10:04 Oxygen By Nasal RT 03/06/25 Transmitted Cannula 10:04 (Nf) Bisoprolol PHA 03/06/25 Logged Fumarate 22:00 (Nf) Lisinopril PHA 03/06/25 Logged 22:00 Hydralazine Injection [facility] 03/06/25 Logged (Apresoline Inject 10:15 Date of Service: Mar 06, 2025 Billing Provider: GERBER GARCIA Common Visit Codes: [id number] INP/OBS CARE (MOD) GERBER GARCIA Mar 06, 2025 10:24
[2025-03-06] MEDS: LISINOPRIL 5 MG TAB PO SCH (10:34)
--- NOTE | 2025-03-06 10:42 | DVH ---
EXAM: XY CHEST TWO VIEWS ROUTINE HISTORY: Uncontrolled hypertension COMPARISON: None TECHNIQUE: Frontal and lateral views of the chest were performed. FINDINGS: No pneumothorax, pulmonary edema, pleural effusions, or consolidative infiltrates. There is central p eribronchial thickening. The thoracic aorta is calcific. The heart is not enlarged. No fractures ar e identified about the bony thorax. There is thoracic degenerative disc disease. There is mild lower thoracic levoscoliosis. IMPRESSION: Mild reactive airways disease. The lungs are otherwise clear.
[2025-03-06 11:29] VITALS: PULSE 58
[2025-03-06 12:15] VITALS: BP 163/88; PULSE 58; RESP 18; TEMP 98.4; O2SAT 96
[2025-03-06] MEDS: SODIUM CHLOR 0.9% PF (SALINE LOCK) 10ML VIAL/SYR IV SCH (13:38)
[2025-03-06 20:00] VITALS: PULSE 54; PULSE 57; RESP 57; O2SAT 94
[2025-03-06 21:00] VITALS: BP 129/76; PULSE 57; RESP 17; TEMP 97.9; O2SAT 94
[2025-03-06] MEDS: Bisoprolol Fumarate 5 MG TABLET PO SCH (21:37)
[2025-03-07] VITALS (8 sets, daily range): BP systolic 139–165; BP diastolic 66–85; PULSE 54–71; RESP 17–20; TEMP 96.9–98.1; O2SAT 94–98
--- NOTE | 2025-03-07 06:52 | DVHSR ---
APPROVED REPORT EXAM: Two-dimensional and M-mode echocardiogram with Doppler and color Doppler. Blood Pressure: 137/64 mmHg INDICATION Uncontrolled HTN LV Function RISK FACTORS Height: 5' 4", Weight: 114 DIMENSIONS LVDd4.3 (3.8-5.7cm)LA (2D)3.6 (1.9-4.0cm)Aortic Root2.7 (2.0-3.7cm) LVDs2.7 (2.5-4.0cm)LA (MM) (1.9-4.0cm)Aortic Cusp Exc1.7 (1.5-2.0cm) EF (%) 66.0 (55-70%)Rt. Atrium3.5 (1.9-4.0cm)Asc. Aorta cm IVSd1.0 (0.7-1.1cm)RV (D) (1.8-2.4cm) PWd0.9 (0.7-1.1cm) Mitral Valve MitralMitral Stenosis E wave0.70m/sMV Mean GR.mmHg A wave0.90m/sMV Peak GR.mmHg E/A ratio0.82D MVAcm2 Aortic Valve Aortic ValveAortic Stenosis V10.90m/Lisa Mean GR.4mmHg V21.40m/Lisa Peak GR.8mmHg LVOT Diameter2.0 (1.8-2.4cm)Doppler AVA2.02cm2 Pulmonic Valve V20.60m/s Tricuspid Valve TR Velocity2.40m/s [id number] Conclusion lvef 60% moderate LVH normal rv function no severe valve abnormalities noted
[2025-03-07 07:24] LABS: Hematocrit 39.3 % (36.0-46.0); Hemoglobin 13.5 g/dL (12.2-16.2); Mean Corpuscular Hemoglobin 31.6 pg (28.0-32.0); Mean Corpuscular Volume 91.9 fL (80.0-100.0); Nucleated Red Blood Cells % 0.0 %
[2025-03-07 07:41] LABS: Alanine Aminotransferase 14 U/L (7-40); Alkaline Phosphatase 47 U/L (46-116); Anion Gap 10 (5-15); BUN/Creatinine Ratio 16.4 (10.0-20.0); Blood Urea Nitrogen 11 mg/dL (9-23); Calcium 9.7 mg/dL (8.7-10.4); Carbon Dioxide 23 mmol/L (20-31); Chloride 101 mmol/L (98-107); Glucose 95 mg/dL (74-106); Potassium 3.7 mmol/L (3.5-5.1)
[2025-03-07 07:42] LABS: Total Protein 6.4 g/dL (5.7-8.2)
[2025-03-07 07:43] LABS: Albumin 4.2 g/dL (3.2-4.8); Bilirubin, Total 0.8 mg/dL (0.2-1.0)
[2025-03-07 07:50] LABS: Sodium 134 mmol/L (136-145)
--- NOTE | 2025-03-07 13:00 | DVHPN2 ---
Reviewed: Care Plan, H&P, Labs, Medications, Previous Orders, Radiology Changes from previous H/P or p: No Changes Eyes: No Pain, No Vision change, No Conjunctivae inflammation, No Eyelid inflammation, No Other, No Redness ENT: No Ear pain, No Ear discharge, No Nose pain, No Nose discharge, No Nose congestion, No Mouth pain, No Mouth swelling, No Throat pain, No Throat swelling, No Other Cardiovascular: No Chest Pain, No Palpitations, No Orthopnea, No Paroxysmal Noc. Dyspnea, No Edema, No Lt Headedness; Other (Hypertension) Respiratory: No Cough, No Dry, No Shortness of breath, No SOB with excertion, No Wheezing, No Hemoptysis, No Pleuritic Pain, No Sputum, No Other Gastrointestinal: No Nausea, No Vomiting, No Abdominal Pain, No Diarrhea, No Constipation, No Melena, No Hematochezia, No Other Genitourinary: No Dysuria, No Frequency, No Incontinence, No Hematuria, No Retention, No Other Musculoskeletal: No other, No neck pain, No shoulder pain, No arm pain, No back pain, No hand pain, No leg pain, No foot pain Skin: No Rash, No Lesions, No Jaundice, No Bruising, No Other Objective Vitals Vital Signs Date Time Temp Pulse Resp B/P (MAP) Pulse Ox O2 Delivery O2 Flow Rate FiO2 03/07/25 09:00 97.2 65 20 148/66 (93) 97 97.2 03/07/25 07:39 Room Air* 0 21 Intake/Output Intake and Output 03/07/25 07:00 Intake Total 2720 ml Balance 2720 ml Intake Oral 1720 ml IV Total 1000 ml # Voids 3 Medications Current Medications Medications Dose Ordered Sig/Nitesh Route Start Time Stop Time Status Last Admin Dose Admin Sodium Chloride 10 ml Q8HR IV 03/06/25 14:00 03/07/25 06:00 10 ML Acetaminophen/ Hydrocodone Bitart 1 tab Q4HP PRN PO 03/06/25 10:15 Ondansetron HCl 4 mg Q4HP PRN IV 03/06/25 10:15 Docusate Sodium 100 mg BIDPRN PRN PO 03/06/25 10:15 Acetaminophen 650 mg Q6HP PRN PO 03/06/25 10:15 Nitroglycerin 0.4 mg Q5MINP PRN SL 03/06/25 10:15 Morphine Sulfate 2 mg Q30M PRN IV 03/06/25 10:15 Patient Own Medication 5 mg BID PO 03/06/25 22:00 Lisinopril 10 mg BID PO 03/06/25 10:14 03/07/25 08:58 10 MG Hydralazine HCl 10 mg Q6HP PRN IV 03/06/25 10:15 Laboratory Results Laboratory Tests 03/07/25 06:30 Chemistry Test 03/07/25 06:30 Albumin 4.2 g/dL (3.2-4.8) Calcium Level 9.7 mg/dL (8.7-10.4) Total Protein 6.4 g/dL (5.7-8.2) LFT Test 03/07/25 06:30 Alanine Aminotransferase (ALT) 14 U/L (7-40) Alkaline Phosphatase 47 U/L (46-116) Aspartate Amino Transferase (AST) 19 U/L (13-40) Total Bilirubin 0.8 mg/dL (0.2-1.0) Labs and/or images reviewed: Labs reviewed by me, Image(s) reviewed by me Assessment/Plan Assessment/Plan Symptomatic bradycardia with heart rate 54: Check TSH, cardiology consult by Dr. [place] Hypertension Hypercholesterolemia Plan discussed with: Patient My Orders Orders - BOY CHRISTIANSON MD Procedure Category Date Status Time Thyroid Stimulating LAB 03/07/25 Verified Hormone 12:54 Date of Service: Mar 07, 2025 Billing Provider: BOY CHRISTIANSON MD Common Visit Codes: [id number] INP/OBS CARE(HIGH) BOY CHRISTIANSON MD Mar 07, 2025 13:00
[2025-03-07 13:17] LABS: Triglycerides 91 mg/dL (< 150)
[2025-03-07 13:19] LABS: HDL Cholesterol 57 mg/dL (40-59)
[2025-03-07 13:58] LABS: Cholesterol 218 mg/dL (< 200)
--- NOTE | 2025-03-07 16:10 | DVHINCON2 ---
Date Seen: Mar 07, 2025 Referring Physician MD David Reason for Consultation Bradycardia History of Present Illness This is a 74-year-old female patient who presents to the emergency room with elevated blood pressure. The patient reports that she routinely checks her blood pressure at home and has had issues controlling her blood pressure on her prescribed medications. The patient came in via EMS with blood pressure 157/73. Per EMS report, patient had systolic pressures reaching as high as 190s at home. She denies all cardiac symptoms. Cardiology has been consulted at this time by primary care team for concerns of bradycardia. At the time of assessment the patient is in normal sinus rhythm on resistor tester. Initial twelve lead electrocardiogram reveals sinus bradycardia without any significant pauses or atrioventricular blocks. Significant past medical history includes hypertension and dyslipidemia. The patient is a [employer] member and takes lisinopril and bisoprolol for hypertension. She does mention a recent increase in her bisoprolol dose to 5 mg b.i.d. Past Medical History Past medical history reviewed. No other significant than mentioned above. Past Surgical History Hysterectomy Bilateral cataract removal Family History: Patient reports no known family medical history. Family History Family history reviewed. Social History Denies the use of tobacco, alcohol or illicit drugs. Allergies: Coded Allergies: NO KNOWN ALLERGIES (Unverified , 09/15/21) Home Meds Active Scripts Ondansetron Odt 4MG Tab (ZOFRAN PO) 4 Mg Tb, 4 MG PO TID PRN, #30 TAB prn n/v ODT TAB-DISSOLVE IN MOUTH, THEN SWALLOW Prov:CADE WHALEN MD 03/01/25 Phenazopyridine HCl (Phenazopyridine Hydrochlo) 200 Mg Tab, 200 MG PO TID PRN, #9 TAB Prn painful urination Prov:CADE WHALEN MD 03/01/25 Ciprofloxacin Hcl (Cipro) 500 Mg Tab, 1 TAB PO BID for 7 Days, #14 TAB Prov:CADE WHALEN MD 03/01/25 Reported Medications Bisoprolol Fumarate (Bisoprolol Fumarate) 5 Mg Tab, 5 MG PO BID 03/06/25 Lisinopril (Lisinopril) 10 Mg Tab, 1 TAB PO BID 03/06/25 Discontinued Scripts Cefdinir (Cefdinir) 300 Mg Cap, 1 CAP PO BID for 7 Days, #14 CAP Prov:LEIGH ANN ORDONEZ MD 02/24/25 Home Meds Home medications reviewed. Current Medications Current Medications Medications (Trade) Dose Ordered Sig/Nitesh Route PRN Reason Start Time Stop Time Status Last Admin Patient Own Medication 5 mg BID PO 03/06/25 22:00 Review of Systems Constitutional: No symptom reported Ears, Nose, & Throat: No symptom reported Eyes: No symptom reported Neurological: No symptoms reported Pulmonary/Respiratory: No symptoms reported Cardiovascular: No symptom reported Gastrointestinal: No symptom reported Genitourinary: No symptom reported Musculoskeletal: No symptom reported Skin: No symptom reported Psychiatric: No symptom reported Endocrine: No symptom reported Hematologic/Lymphatic: No symptom reported Vital Signs Vital Signs Date Time Temp Pulse Resp B/P (MAP) Pulse Ox O2 Delivery O2 Flow Rate FiO2 03/07/25 13:00 96.9 57 20 151/85 (107) 97 96.9 03/07/25 07:39 Room Air* 0 21 Physical Exam General Appearance: Cooperative. Well-developed. Well-nourished. No acute distress. Pulmonary/Respiratory: Clear, bilateral breaths sounds. Cardiovascular/Chest: Regular rate and rhythm. Peripheral Pulses: 2+ Radial (R). 2+ Radial (L). 2+ Pedal (R). 2+ Pedal (L) Abdominal Exam: Normal bowel sounds. Ankle Exam: Negative ankle edema Lower extremities: Negative lower extremity edema Neuro/Mental Status: A/OX4, coherent. Thoughts/Psych: Normal thought pattern. Appropriate mood and affect. Good judgment and insight. Appearance: No acute distress. Skin Exam: Normal inspection. Normal color. Warm and dry. Labs/Diagnostic Data Labs Test 03/07/25 06:30 03/06/25 06:39 Range/Units White Blood Count 4.6 4.4-10.8 10^3/uL Red Blood Count 4.28 4.0-5.20 10^6/uL Hemoglobin 13.5 12.2-16.2 g/dL Hematocrit 39.3 36.0-46.0 % Mean Corpuscular Volume 91.9 80.0-100.0 fL Mean Corpuscular Hemoglobin 31.6 28.0-32.0 pg Mean Corpuscular Hemoglobin Concent 34.3 32.0-36.0 g/dL Red Cell Distribution Width 14.3 11.8-14.3 % Platelet Count 263 140-450 10^3/uL Mean Platelet Volume 7.2 6.9-10.8 fL Neutrophils (%) (Auto) 51.3 37.0-80.0 % Lymphocytes (%) (Auto) 36.1 10.0-50.0 % Monocytes (%) (Auto) 9.3 0.0-12.0 % Eosinophils (%) (Auto) 2.9 0.0-7.0 % Basophils (%) (Auto) 0.4 0.0-2.0 % Neutrophils # (Auto) 2.4 1.6-8.6 10 ^3/uL Lymphocytes # (Auto) 1.7 0.4-5.4 10 ^3/uL Monocytes # (Auto) 0.4 0-1.3 10 ^3/uL Eosinophils # (Auto) 0.1 0-0.8 10 ^3/uL Basophils # (Auto) 0 0-0.2 10 ^3/uL Nucleated Red Blood Cells 0.0 % Sodium Level 134 L 136-145 mmol/L Potassium Level 3.7 3.5-5.1 mmol/L Chloride Level 101 98-107 mmol/L Carbon Dioxide Level 23 20-31 mmol/L Anion Gap 10 5-15 Blood Urea Nitrogen 11 9-23 mg/dL Creatinine 0.67 0.550-1.02 mg/dL Glomerular Filtration Rate Calc 92 >90 mL/min BUN/Creatinine Ratio 16.4 10.0-20.0 Serum Glucose 95 74-106 mg/dL Calcium Level 9.7 8.7-10.4 mg/dL Total Bilirubin 0.8 0.2-1.0 mg/dL Aspartate Amino Transferase (AST) 19 13-40 U/L Alanine Aminotransferase (ALT) 14 7-40 U/L Alkaline Phosphatase 47 46-116 U/L Total Protein 6.4 5.7-8.2 g/dL Albumin 4.2 3.2-4.8 g/dL Triglycerides Level 91 < 150 mg/dL Cholesterol Level 218 H < 200 mg/dL LDL Cholesterol 155 H < 100 mg/dL HDL Cholesterol 57 40-59 mg/dL Thyroid Stimulating Hormone (TSH) 0.41 L 0.55-4.78 uIU/mL Troponin I High Sensitivity 4 </=34 ng/L Assessment Sinus bradycardia likely secondary to beta-tyra use Hypertensive urgency Dyslipidemia Plan/Recommendation We will continue with the following plan/recommendations (Dr. East): Case discussed with . Transthoracic echocardiogram reveals an EF of 60%. At the time of assessment, the patient denies all symptoms. The patient actually reports that she never experienced any symptoms prior to emergency room arrival and only came in because her blood pressure readings at home were high. sanitarian inspector reviewed, episodes of sinus bradycardia noted without any significant pauses or atrioventricular blocks. Medication list reviewed with the patient. Patient noted to be taking beta-tyra, bisoprolol which was recently increased by her primary physician. Sinus bradycardia likely secondary to beta-tyra use. Recommend to increase RUDY inhibitor for tighter blood pressure control. Further hypertensive management per primary care team. There is no further inpatient cardiac workup indicated at this time. Thank you for allowing us to care for this patient. Please call with any questions or concerns. Critical care time spent: 44 minutes This medical document was created using an electronic medical record system with voice recognition software and computerized dictation system. Although this document has been carefully reviewed, there might still be some phonetic and typographical errors. Occasional wrong-word or ``sound-alike substitutions may have occurred due to the inherent limitations of voice recognition software. These areas are purely typographical due to imperfections of the software programs and do not reflect any compromise in the patient's medical care. Please read the chart carefully and recognize, using context, where these substitutions have occurred. Plan discussed with: Patient NYHA Physical activity limitations: NA Date of Service: Mar 07, 2025 Billing Provider: HEAVEN GAYTAN Cardiology Common Codes: [id number] INP/OBS CARE (High) Cardiology Consultation Codes: [id number] CONSULT <45MIN HEAVEN GAYTAN Mar 07, 2025 16:10
[2025-03-08] VITALS (7 sets, daily range): BP systolic 139–157; BP diastolic 73–83; PULSE 56–64; RESP 18–20; TEMP 36.1; O2SAT 96–98
[2025-03-08] MEDS: MELATONIN 5 MG TAB PO ONE (01:16)
[2025-03-08] MEDS ORDERED: LISI40TA16 PO (11:56)
--- NOTE | 2025-03-08 11:58 | DVHPN2 ---
Reviewed: Care Plan, H&P, Labs, Medications, Previous Orders, Radiology Changes from previous H/P or p: No Changes Eyes: No Pain, No Vision change, No Conjunctivae inflammation, No Eyelid inflammation, No Other, No Redness ENT: No Ear pain, No Ear discharge, No Nose pain, No Nose discharge, No Nose congestion, No Mouth pain, No Mouth swelling, No Throat pain, No Throat swelling, No Other Cardiovascular: No Chest Pain, No Palpitations, No Orthopnea, No Paroxysmal Noc. Dyspnea, No Edema, No Lt Headedness; Other (Hypertension) Respiratory: No Cough, No Dry, No Shortness of breath, No SOB with excertion, No Wheezing, No Hemoptysis, No Pleuritic Pain, No Sputum, No Other Gastrointestinal: No Nausea, No Vomiting, No Abdominal Pain, No Diarrhea, No Constipation, No Melena, No Hematochezia, No Other Genitourinary: No Dysuria, No Frequency, No Incontinence, No Hematuria, No Retention, No Other Musculoskeletal: No other, No neck pain, No shoulder pain, No arm pain, No back pain, No hand pain, No leg pain, No foot pain Skin: No Rash, No Lesions, No Jaundice, No Bruising, No Other Objective Vitals Vital Signs Date Time Temp Pulse Resp B/P (MAP) Pulse Ox O2 Delivery O2 Flow Rate FiO2 03/08/25 09:18 148/75 03/08/25 09:00 97.0 64 20 98 97.0 03/08/25 07:46 Room Air* 0 21 Intake/Output Intake and Output 03/08/25 07:00 Intake Total 2838 ml Balance 2838 ml Intake Oral 2838 ml # Voids 12 # Bowel Movements 1 Medications Current Medications Medications Dose Ordered Sig/Nitesh Route Start Time Stop Time Status Last Admin Dose Admin Sodium Chloride 10 ml Q8HR IV 03/06/25 14:00 03/08/25 05:19 10 ML Acetaminophen/ Hydrocodone Bitart 1 tab Q4HP PRN PO 03/06/25 10:15 Ondansetron HCl 4 mg Q4HP PRN IV 03/06/25 10:15 Docusate Sodium 100 mg BIDPRN PRN PO 03/06/25 10:15 Acetaminophen 650 mg Q6HP PRN PO 03/06/25 10:15 Nitroglycerin 0.4 mg Q5MINP PRN SL 03/06/25 10:15 Morphine Sulfate 2 mg Q30M PRN IV 03/06/25 10:15 Patient Own Medication 5 mg BID PO 03/06/25 22:00 03/07/25 22:27 5 MG Lisinopril 10 mg BID PO 03/06/25 10:14 03/08/25 09:18 10 MG Hydralazine HCl 10 mg Q6HP PRN IV 03/06/25 10:15 Laboratory Results Laboratory Tests 03/07/25 06:30 Labs and/or images reviewed: Labs reviewed by me, Image(s) reviewed by me Assessment/Plan Assessment/Plan Symptomatic bradycardia with heart rate 54 secondary to beta tyra use by bisoprolol, TSH slightly low at 0.41, cardiology consult by Dr. East, advised to stop the beta tyra Hypertension increase lisinopril from 10 mg to 40 mg p.o. daily Hypercholesterolemia Plan discussed with: Patient My Orders Orders - BOY CHRISTIANSON MD Procedure Category Date Status Time * Cardiology Consult CONS 03/07/25 Transmitted 13:01 Date of Service: Mar 08, 2025 Billing Provider: BOY CHRISTIANSON MD Common Visit Codes: [id number] INP/OBS CARE(HIGH) BOY CHRISTIANSON MD Mar 08, 2025 11:58
--- NOTE | 2025-03-08 12:02 | DVHDS2 ---
Discharge Summary Date of Admission Mar 06, 2025 at 10:04 Date of Discharge: Mar 08, 2025 Admitting Diagnosis Weakness Wounds: none Labs/Diagnostic Data: Laboratory Results Test 03/07/25 06:30 03/06/25 06:39 White Blood Count 4.6 10^3/uL (4.4-10.8) Red Blood Count 4.28 10^6/uL (4.0-5.20) Hemoglobin 13.5 g/dL (12.2-16.2) Hematocrit 39.3 % (36.0-46.0) Mean Corpuscular Volume 91.9 fL (80.0-100.0) Mean Corpuscular Hemoglobin 31.6 pg (28.0-32.0) Mean Corpuscular Hemoglobin Concent 34.3 g/dL (32.0-36.0) Red Cell Distribution Width 14.3 % (11.8-14.3) Platelet Count 263 10^3/uL (140-450) Mean Platelet Volume 7.2 fL (6.9-10.8) Neutrophils (%) (Auto) 51.3 % (37.0-80.0) Lymphocytes (%) (Auto) 36.1 % (10.0-50.0) Monocytes (%) (Auto) 9.3 % (0.0-12.0) Eosinophils (%) (Auto) 2.9 % (0.0-7.0) Basophils (%) (Auto) 0.4 % (0.0-2.0) Neutrophils # (Auto) 2.4 10 ^3/uL (1.6-8.6) Lymphocytes # (Auto) 1.7 10 ^3/uL (0.4-5.4) Monocytes # (Auto) 0.4 10 ^3/uL (0-1.3) Eosinophils # (Auto) 0.1 10 ^3/uL (0-0.8) Basophils # (Auto) 0 10 ^3/uL (0-0.2) Nucleated Red Blood Cells 0.0 % Sodium Level 134 mmol/L (136-145) Potassium Level 3.7 mmol/L (3.5-5.1) Chloride Level 101 mmol/L (98-107) Carbon Dioxide Level 23 mmol/L (20-31) Anion Gap 10 (5-15) Blood Urea Nitrogen 11 mg/dL (9-23) Creatinine 0.67 mg/dL (0.550-1.02) Glomerular Filtration Rate Calc 92 mL/min (>90) BUN/Creatinine Ratio 16.4 (10.0-20.0) Serum Glucose 95 mg/dL (74-106) Calcium Level 9.7 mg/dL (8.7-10.4) Total Bilirubin 0.8 mg/dL (0.2-1.0) Aspartate Amino Transferase (AST) 19 U/L (13-40) Alanine Aminotransferase (ALT) 14 U/L (7-40) Alkaline Phosphatase 47 U/L (46-116) Total Protein 6.4 g/dL (5.7-8.2) Albumin 4.2 g/dL (3.2-4.8) Triglycerides Level 91 mg/dL (< 150) Cholesterol Level 218 mg/dL (< 200) LDL Cholesterol 155 mg/dL (< 100) HDL Cholesterol 57 mg/dL (40-59) Thyroid Stimulating Hormone (TSH) 0.41 uIU/mL (0.55-4.78) Troponin I High Sensitivity 4 ng/L (</=34) Other Laboratory Tests 03/07/25 06:30 Brief Hx & Hospital Course: 74-year-old female with a history of hypertension hypercholesterolemia hypothyroidism came in complaining of generalized weakness found to have heart rate of 54. Cardiology consult by Dr. East advised that the patient has bradycardia secondary to beta tyra use bisoprolol which was advised to be discontinued. Blood pressure was high lisinopril increased from 10 mg to 40 mg p.o. daily. Cleared for discharge by Cardiology. At the time of discharge patient is ambulatory with a stable vital signs. Prescription for lisinopril sent to the pharmacy advised to stop the beta tyra and follow up with the [facility] Consults/Reason for consult Cardiology Dr. East Operations or Procedures Echocardiogram Condition at Discharge: Fair Final Diagnosis/Problems List Symptomatic bradycardia with heart rate 54 secondary to beta tyra use by bisoprolol, TSH slightly low at 0.41, cardiology consult by Dr. East, advised to stop the beta tyra Hypertension increase lisinopril from 10 mg to 40 mg p.o. daily Hypercholesterolemia Discharge Disposition: Home Discharge Instruct/Medications Diet: Cardiac 2g Na,low cholest Activity: Light activity Follow Up/Referral: stop Bisoprolol Blood pressure medication lisinopril has been increased from 10 mg p.o. daily to 40 mg p.o. daily Medications: Lisinopril Transmitted to [facility] pharmacy Scheduled Bisoprolol Fumarate (Bisoprolol Fumarate), 5 MG PO BID, (Reported) Ciprofloxacin Hcl (Cipro), 1 TAB PO BID Lisinopril (Lisinopril), 1 TAB PO BID, (Reported) Lisinopril (Lisinopril), 1 TAB PO DAILY Scheduled PRN Ondansetron Odt 4MG Tab (Zofran Po), 4 MG PO TID PRN Phenazopyridine HCl (Phenazopyridine Hydrochlo), 200 MG PO TID PRN Discontinued Medications Cefdinir (Cefdinir), 1 CAP PO BID 35 (Time Taken for discharge summary 35 minutes) Discharge Statement: "Patient was advised to return to the ER or call 911 if any headaches, dizziness, shortness of breath, chest pain, abdominal pain, bleeding, fevers, or worsening of medical condition. Patient was counseled about treatment plan, medications, possible side effects, patientverbalized understanding. All questions were answered to the best of my ability. This discharge took greater then 30 minutes in planning, reviewing documentation, counseling the patient, and discussing with other team members." ASSESSMENT ASSESSMENT Hospital Course Uneventful Assessment Symptomatic bradycardia with heart rate 54 secondary to beta tyra use by bisoprolol, TSH slightly low at 0.41, cardiology consult by Dr. East, advised to stop the beta tyra Hypertension increase lisinopril from 10 mg to 40 mg p.o. daily Hypercholesterolemia Date of Service: Mar 08, 2025 Billing Provider: BOY CHRISTIANSON MD Common Visit Codes: [id number] DISCH DAY >30min BOY CHRISTIANSON MD Mar 08, 2025 12:02
--- NOTE | 2025-03-10 07:21 | ECG ---
[facility] Test Date: 2025-03-07 Test Time: 13:27:39 Pat Name: BUCKY ROMAN Department: Room: 0275T B Gender: F Hammer Adjuster: kalpana mazariegos : 1950 Requested By: BOY CHRISTIANSON Order Number: [id number] Reading MD: Measurements Intervals [place] Rate: 63 P: 30 LA: 156 QRS: 55 QRSD: 76 T: 99 QT: 397 QTc: 407 Interpretive Statements Sinus rhythm Abnormal R-wave progression, early transition Borderline repolarization abnormality Please click the below link to view image of tracing.
== END 2025-03-08 16:00 | disposition home or self-care (01) | DRG 305 ==
LOC: EDBD 05:31 → ER 05:31 → EDSEX 05:31 → OVERFLOW 10:04 → TELE-WESTW 11:08
PROVIDERS: ADMIT Nurse Practitioner Family; ATTEND Nurse Practitioner Family
DX: I16.0 Hypertensive urgency (principal); Z68.1 Body mass index [BMI] 19.9 or less, adult; R00.1 Bradycardia, unspecified; I10 Essential (primary) hypertension; E78.00 Pure hypercholesterolemia, unspecified; T44.7X5A Adverse effect of beta-adrenoreceptor antagonists, initial encounter; E03.9 Hypothyroidism, unspecified; Z90.710 Acquired absence of both cervix and uterus; Z98.42 Cataract extraction status, left eye; Z98.41 Cataract extraction status, right eye; Y92.89 Other specified places as the place of occurrence of the external cause; R63.6 Underweight
CPT/HCPCS: 36415; 71046; 80048; 80053; 80061; 84443; 84484; 85025; 93005; 93306; 96360; 99291; G0378